=== PATIENT | female | born 1935 | race Caucasian/White ===

== ENCOUNTER 2023-03-13 16:34 | Inpatient (IN) | payer MEDICARE, BC ==
[~2023-03-13 16:34] MED LIST: Iopamidol-370 76% 500 ML MDV (1 ML CHARGE) ONE
[2023-03-13 16:57] LABS: #Basophils 0.1 thou/uL (0.0-0.2); #Monocytes 1.2 thou/uL (0.11-0.59); #Neutrophils 4.3 thou/uL (1.40-6.50); %Basophils 1.3 % (0.0-1.0); %Lymphocytes 23.4 % (21.0-51.0); %Monocytes 13.6 % (0.0-10.0); %Neutrophils 50.5 % (42.0-75.0); Hematocrit 37.2 % (36.0-47.0); Hemoglobin 12.9 g/dL (12.0-16.0); Mean Corpuscular HGB CONC 34.7 g/dL (32.0-36.0); Mean Corpuscular Hemoglobin 29.5 pg (27.0-31.0); Mean Corpuscular Volume 85.1 fl (78.0-98.0); Mean Platelet Volume 9.8 fL (7.4-10.4); RBC Distribution Width 13.4 % (11.5-14.5); Red Blood Cell (RBC) Count 4.37 mill/uL (4.20-5.40); White Blood Cell (WBC) Count 8.6 10x3/uL (4.8-10.8)
[2023-03-13 17:01] LABS: Platelet Count 288 10x3/uL (130-400)
[2023-03-13 17:10] LABS: INR-International Normal Ratio 0.9; Prothrombin Time 12.9 sec (12.0-14.7)
[2023-03-13 17:11] LABS: PTT 26.7 sec (22.9-36.1)
[2023-03-13 17:41] LABS: Troponin I Less than 0.010 ng/mL (< 0.028)
[2023-03-13 17:43] LABS: ALT (SGPT) 14 U/L (8-55); AST (SGOT) 19 U/L (5-34); Albumin 4.4 g/dL (3.4-4.8); Alkaline Phosphatase 118 U/L (40-110); Anion Gap 16 mmol/L (10-20); BUN (Urea Nitrogen) 21 mg/dL (9.8-20.1); Bilirubin, Total Less than 1.0 mg/dL (0.2-1.2); Calc. Creatinine Clearance 0 mL/min (70-130); Calcium 10.5 mg/dL (7.8-10.44); Carbon Dioxide 23 mmol/L (23-31); Chloride 96 mmol/L (98-107); Estimated GFR 57; Glucose 90 mg/dL (83-110); Potassium 4.2 mmol/L (3.5-5.1); Protein, Total 7.4 g/dL (5.8-8.1); Sodium 131 mmol/L (136-145)
[2023-03-13] MEDS ORDERED: Ondansetron PF 4 MG/2 ML Vial IVP PRN (19:32)
[2023-03-13] MEDS ORDERED: Labetalol HCl 100 MG/20 ML VIAL SLOW IVP PRN (19:32)
[2023-03-13] MEDS ORDERED: hydrALAZINE 20 MG/ML VIAL SLOW IVP PRN (19:32)
[2023-03-13] MEDS ORDERED: Aspirin Chewable 81 MG TAB ONE ×3 (19:54→19:55)
[2023-03-13] MEDS ORDERED: hydrALAZINE 20 MG/ML VIAL ONE (22:19)
[2023-03-13] MEDS: Polyethylene Glycol 3350 17 GM Packet PO SCH (22:37)
[2023-03-13] MEDS: Atorvastatin Calcium 40 MG TAB PO SCH (22:44)
[2023-03-14] MEDS ORDERED: Acetaminophen 325 MG TAB ONE (02:14)
[2023-03-14] MEDS: Acetaminophen 325 MG TAB PO PRN (02:20)
[2023-03-14] MEDS ORDERED: Ibuprofen 200 MG TAB PO SCH (05:15)
[2023-03-14] MEDS ORDERED: Ibuprofen 200 MG TAB ONE (05:17)
[2023-03-14] MEDS ORDERED: Acetaminophen/Codeine 30-300mg Tablet ONE (05:45)
[2023-03-14] MEDS ORDERED: Acetaminophen/Codeine 30-300mg Tablet PO SCH (06:00)
[2023-03-14 07:15] LABS: #Basophils 0.1 thou/uL (0.0-0.2); #Eosinphils 0.9 thou/uL (0.0-0.7); #Monocytes 0.9 thou/uL (0.11-0.59); #Neutrophils 4.3 thou/uL (1.40-6.50); %Basophils 1.4 % (0.0-1.0); %Eosinophils 11.6 % (0.0-10.0); %Lymphocytes 21.5 % (21.0-51.0); %Monocytes 11.4 % (0.0-10.0); %Neutrophils 53.8 % (42.0-75.0); Hematocrit 36.7 % (36.0-47.0); Hemoglobin 12.5 g/dL (12.0-16.0); Mean Corpuscular HGB CONC 34.1 g/dL (32.0-36.0); Mean Corpuscular Hemoglobin 29.3 pg (27.0-31.0); Mean Corpuscular Volume 86.2 fl (78.0-98.0); Mean Platelet Volume 10.2 fL (7.4-10.4); Platelet Count 278 10x3/uL (130-400); RBC Distribution Width 13.5 % (11.5-14.5); Red Blood Cell (RBC) Count 4.26 mill/uL (4.20-5.40); White Blood Cell (WBC) Count 7.9 10x3/uL (4.8-10.8)
[2023-03-14 07:30] LABS: Hemoglobin A1c 5.5 % (4.0-6.0)
[2023-03-14 07:38] LABS: Anion Gap 13 mmol/L (10-20); BUN (Urea Nitrogen) 16 mg/dL (9.8-20.1); Calc. Creatinine Clearance 0 mL/min (70-130); Calcium 10.2 mg/dL (7.8-10.44); Carbon Dioxide 24 mmol/L (23-31); Cardiac Risk 5.1 (Less than 4.5); Chloride 94 mmol/L (98-107); Cholesterol 216 mg/dl (< 200 Desired); Estimated GFR 77; Glucose 115 mg/dL (83-110); HDL Cholesterol 42 mg/dL (>60 Neg Risk); LDL Cholesterol, Calculated 147 mg/dL; Potassium 3.3 mmol/L (3.5-5.1); Sodium 128 mmol/L (136-145); Triglycerides 137 mg/dL (Less than 150)
[2023-03-14] MEDS ORDERED: Aspirin 81 mg Enteric Coated Tablet PO SCH (09:00)
[2023-03-14] MEDS ORDERED: Aspirin 325 mg Enteric Coated Tablet PO SCH (09:00)
[2023-03-14] MEDS ORDERED: Acetaminophen W/ Codeine 5 ML UDCUP PO PRN (11:40)
[2023-03-14] MEDS ORDERED: Aspirin 300 MG Suppository PR SCH (17:15)
[2023-03-14] MEDS: Sodium Chloride 0.9% 1,000 ML IV SCH (17:27)
[2023-03-14 18:44] VITALS: BMI 21.4
[2023-03-14] MEDS ORDERED: Pantoprazole 40 MG VIAL IVP SCH (19:15)
[2023-03-14] MEDS: Atorvastatin Calcium 40 MG TAB PO SCH (21:01)
[2023-03-14] MEDS: Polyethylene Glycol 3350 17 GM Packet PO SCH (21:02)
[2023-03-14] MEDS: diphenhydrAMINE 50 MG/ML VIAL IVP SCH ×2 (21:09→21:26)
[2023-03-15 05:23] LABS: #Basophils 0.1 thou/uL (0.0-0.2); #Eosinphils 0.8 thou/uL (0.0-0.7); #Neutrophils 3.4 thou/uL (1.40-6.50); %Basophils 1.4 % (0.0-1.0); %Eosinophils 11.1 % (0.0-10.0); %Lymphocytes 26.6 % (21.0-51.0); %Monocytes 13.7 % (0.0-10.0); %Neutrophils 46.8 % (42.0-75.0); Hematocrit 35.9 % (36.0-47.0); Hemoglobin 12.3 g/dL (12.0-16.0); Mean Corpuscular HGB CONC 34.3 g/dL (32.0-36.0); Mean Corpuscular Hemoglobin 29.3 pg (27.0-31.0); Mean Corpuscular Volume 85.5 fl (78.0-98.0); Mean Platelet Volume 10.3 fL (7.4-10.4); Platelet Count 259 10x3/uL (130-400); RBC Distribution Width 13.5 % (11.5-14.5); White Blood Cell (WBC) Count 7.2 10x3/uL (4.8-10.8)
[2023-03-15 05:58] LABS: Anion Gap 10 mmol/L (10-20); BUN (Urea Nitrogen) 14 mg/dL (9.8-20.1); Calc. Creatinine Clearance 41 mL/min (70-130); Carbon Dioxide 25 mmol/L (23-31); Chloride 99 mmol/L (98-107); Estimated GFR 71; Glucose 91 mg/dL (83-110); Potassium 3.6 mmol/L (3.5-5.1); Sodium 130 mmol/L (136-145)
[2023-03-15] MEDS ORDERED: Atenolol 25 MG TAB PO SCH (09:00)
[2023-03-15] MEDS ORDERED: Lisinopril/Hydrochlorothiazide 20 mg/12.5 mg Tablet PO SCH (09:00)
[2023-03-15] MEDS ORDERED: Progesterone,Micronized 100 MG CAP PO SCH ×2 (09:00→21:00)
[2023-03-15] MEDS: Aspirin 300 MG Suppository PR SCH (10:50)
[2023-03-15] MEDS: Sodium Chloride 0.9% 1,000 ML IV SCH (10:50)
[2023-03-15] MEDS: Atorvastatin Calcium 40 MG TAB PO SCH (20:23)
[2023-03-15] MEDS ORDERED: Polyethylene Glycol 3350 17 GM Packet PO SCH (21:00)
[2023-03-15] MEDS ORDERED: LIDOCAINE HCL TOP SCH (21:00)
[2023-03-15] MEDS ORDERED: Non-Formulary Item 1 EACH (Progesterone, Micronized [Progesterone] 200 MG Capsule) PO SCH (21:00)
[2023-03-15] MEDS ORDERED: LIDOCAINE HCL TP SCH (21:00)
[2023-03-16] MEDS: Sodium Chloride 0.9% 1,000 ML IV SCH (03:18)
[2023-03-16] MEDS: Acetaminophen 325 MG TAB PO PRN (03:19)
[2023-03-16 05:39] LABS: #Basophils 0.1 thou/uL (0.0-0.2); #Eosinphils 0.8 thou/uL (0.0-0.7); #Monocytes 1.1 thou/uL (0.11-0.59); #Neutrophils 4.8 thou/uL (1.40-6.50); %Basophils 1.1 % (0.0-1.0); %Eosinophils 9.8 % (0.0-10.0); %Lymphocytes 19.3 % (21.0-51.0); %Monocytes 12.7 % (0.0-10.0); %Neutrophils 56.7 % (42.0-75.0); Hematocrit 32.6 % (36.0-47.0); Hemoglobin 11.1 g/dL (12.0-16.0); Mean Corpuscular Hemoglobin 29.3 pg (27.0-31.0); Mean Platelet Volume 10.6 fL (7.4-10.4); Platelet Count 249 10x3/uL (130-400); RBC Distribution Width 13.4 % (11.5-14.5); Red Blood Cell (RBC) Count 3.79 mill/uL (4.20-5.40); White Blood Cell (WBC) Count 8.4 10x3/uL (4.8-10.8)
[2023-03-16 06:12] LABS: Anion Gap 11 mmol/L (10-20); BUN (Urea Nitrogen) 13 mg/dL (9.8-20.1); Calc. Creatinine Clearance 46 mL/min (70-130); Calcium 9.6 mg/dL (7.8-10.44); Carbon Dioxide 23 mmol/L (23-31); Chloride 104 mmol/L (98-107); Estimated GFR 83; Glucose 96 mg/dL (83-110); Potassium 3.3 mmol/L (3.5-5.1); Sodium 135 mmol/L (136-145)
[2023-03-16] MEDS ORDERED: Lisinopril/Hydrochlorothiazide 20 mg/12.5 mg Tablet PO SCH (09:00)
[2023-03-16] MEDS ORDERED: Atenolol 25 MG TAB PO SCH (09:00)
[2023-03-16] MEDS: Aspirin 300 MG Suppository PR SCH (11:03)
[2023-03-16] MEDS ORDERED: Aspirin 81 mg Enteric Coated Tablet PO SCH (11:15)
[2023-03-16] MEDS ORDERED: Aspirin Chewable 81 MG TAB PO SCH (11:15)
[2023-03-16 15:38] VITALS: BP 174/78; TEMP 98.3
[2023-03-17] MEDS ORDERED: Aspirin Chewable 81 MG TAB PO SCH (09:00)
[2023-03-17] MEDS ORDERED: Aspirin 81 mg Enteric Coated Tablet PO SCH (09:00)
[2023-03-17] MEDS ORDERED: Aspirin 325 mg Enteric Coated Tablet PO SCH (09:00)
== END 2023-03-16 15:40 | DRG 65 ==
LOC: ERS 16:34 → 2SE 18:40 → ERHOLD 19:16 → 2SE 03-14 14:43
PROVIDERS: ADMIT Internal Medicine; ATTEND Internal Medicine Critical Care Medicine
DX: I63.9 Cerebral infarction, unspecified (principal); E87.1 Hypo-osmolality and hyponatremia; G81.91 Hemiplegia, unspecified affecting right dominant side; E78.5 Hyperlipidemia, unspecified; I10 Essential (primary) hypertension; I25.10 Atherosclerotic heart disease of native coronary artery without angina pectoris; M19.90 Unspecified osteoarthritis, unspecified site; I44.0 Atrioventricular block, first degree; K22.2 Esophageal obstruction; Z95.5 Presence of coronary angioplasty implant and graft; Z98.890 Other specified postprocedural states; Z90.710 Acquired absence of both cervix and uterus; Z88.8 Allergy status to other drugs, medicaments and biological substances; Z87.891 Personal history of nicotine dependence
CPT/HCPCS: 36415; 36416; 70450; 70496; 70498; 70551; 71045; 74230; 80048; 80053; 80061; 83036; 84484; 85025; 85610; 85730; 93005; 93306; 94760; C9113; J0360; J1200; J7050; Q9967